=== PATIENT | male | born 1955 | race Caucasian/White ===

== ENCOUNTER 2016-11-17 13:00 | Emergency (ER) | payer BC, OTHER ==
[~2016-11-17] VITALS: Ht 180.3 cm; Wt 62.0 kg
[2016-11-17 13:05] VITALS: BP 180/120; PULSE 78; RESP 20; TEMP 98.6; O2SAT 97
[2016-11-17] MEDS ORDERED: METO100T PO (13:11)
[2016-11-17 13:16] VITALS: BP 216/118; PULSE 78
[2016-11-17] MEDS ORDERED: SODIUM CHLORIDE 0.9% FLUSH 5 ML FLUSH IVF PRN (13:30)
[2016-11-17] MEDS ORDERED: LIDOCAINE 1%/EPINEPHrine 1:100,000 SOLN 20 ML VIAL INFIL ONE (13:30)
--- NOTE | 2016-11-17 13:31 | PD ---
HPI Chief Complaint: Syncope/Near-Syncope Time Seen by Provider: 13:10 Travel History International Travel<30 days: No Contact w/Intl Traveler<30days: No Traveled to known affect area: No History of Present Illness HPI 61-year-old male with history of hypertension presents via EMS for evaluation after fall. 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 They were walking to a restaurant when the patient became forgetful. He forgot that he only gave the keys to the mechanics. He seemed to have an unsteady gait. When they arrived at the restaurant the patient drank yvon. He told the friend that he did not feel good and walked outside. He became combative and the patient's friend went inside the restaurant to call 911. When he returned outside the patient was passed out on the ground with laceration on the right eyebrow. This was a witnessed syncopal event by bystanders. There is no reported seizure activity. At this point in time the patient reports that he feels fine. He remembers driving his car off. He does not recall argument with his friend. He admits to drinking one glass of wine this morning as well as the yvon. She denies any headache, blurred vision, weakness, unusual slurred speech, shortness of breath, nausea or vomiting, abdominal pain, recent illness. Last tetanus vaccination was 3 months ago. He reports a history of hypertension for which she is prescribed 100 mg of metoprolol twice a day however he changed the dose himself to 50 mg twice a day because he felt that 100 mg was too much. He denies any personal history of coronary artery disease , structural cardiac abnormalities, no arrhythmias. No other complaints. [facility] Past Medical History Cardiovascular Problems: Yes Hypertension: Yes Tetanus Vaccination: Unknown Social History Alcohol Use: Yes Tobacco Use: Yes Substance Use: No Allergies-Medications (Allergen,Severity, Reaction): Coded Allergies: No Known Allergies (Unverified , 11/17/16) Reported Meds & Prescriptions Reported Meds & Active Scripts Active Reported Metoprolol Tartrate 100 Mg Tab 100 Mg PO BID Review of Systems Except as stated in HPI: all other systems reviewed are Neg Physical Exam Narrative GENERAL: Pleasant well-developed well-nourished male who is in no acute distress. He is alert and oriented, answering questions responding to commands appropriately. There is a smell of alcohol on his breath. SKIN: Warm and dry. HEAD: Atraumatic. Normocephalic. EYES: Pupils equal and round. No scleral icterus. No injection or drainage. ENT: No nasal bleeding or discharge. Mucous membranes pink and moist. NECK: Trachea midline. No JVD. CARDIOVASCULAR: Regular rate and rhythm. No murmur appreciated. RESPIRATORY: No accessory muscle use. Clear to auscultation. Breath sounds equal bilaterally. GASTROINTESTINAL: Abdomen soft, non-tender, nondistended. MUSCULOSKELETAL: No obvious deformities. No tenderness to palpation along the cervical or thoracic or lumbar midline spine. NEUROLOGICAL: Awake and alert. No obvious cranial nerve deficits. Motor grossly within normal limits. Mildly slurred speech. Mild ataxia bilaterally with finger to nose examination. Normal [id number]. PSYCHIATRIC: Appropriate mood and affect; insight and judgment normal. Data Data Last Documented VS Vital Signs Date Time Temp Pulse Resp B/P Pulse Ox O2 Delivery O2 Flow Rate FiO2 11/17/16 15:30 78 18 167/93 97 11/17/16 13:05 98.6 Orders Electrocardiogram (11/17/16 13:16) Basic Metabolic Panel (Bmp) (11/17/16 13:16) Complete Blood Count With Diff (11/17/16 13:16) Magnesium (Mg) (11/17/16 13:16) Ckmb (Isoenzyme) Profile (11/17/16 13:16) Troponin I (11/17/16 13:16) Ct Brain W/O Iv Contrast(Rout) (11/17/16 13:16) Ecg Monitoring (11/17/16 13:16) Iv Access Insert/Monitor (11/17/16 13:16) Oximetry (11/17/16 13:16) Sodium Chloride 0.9% Flush (Ns Flush) (11/17/16 13:30) Alcohol (Ethanol) (11/17/16 13:16) Lidocai-Epi 1%-1:100,000 Inj (Xylocaine- (11/17/16 13:30) Enalaprilat Inj (Vasotec Inj) (11/17/16 13:45) CKMB (11/17/16 13:20) CKMB% (11/17/16 13:20) Labs Laboratory Tests Test 11/17/16 13:20 White Blood Count 5.6 TH/MM3 Red Blood Count 3.91 MIL/MM3 Hemoglobin 14.2 GM/DL Hematocrit 41.3 % Mean Corpuscular Volume 105.7 FL Mean Corpuscular Hemoglobin 36.4 PG Mean Corpuscular Hemoglobin 34.5 % Concent Red Cell Distribution Width 14.8 % Platelet Count 217 TH/MM3 Mean Platelet Volume 7.4 FL Neutrophils (%) (Auto) 62.2 % Lymphocytes (%) (Auto) 22.3 % Monocytes (%) (Auto) 13.6 % Eosinophils (%) (Auto) 1.2 % Basophils (%) (Auto) 0.7 % Neutrophils # (Auto) 3.5 TH/MM3 Lymphocytes # (Auto) 1.2 TH/MM3 Monocytes # (Auto) 0.8 TH/MM3 Eosinophils # (Auto) 0.1 TH/MM3 Basophils # (Auto) 0.0 TH/MM3 CBC Comment DIFF FINAL Differential Comment Sodium Level 138 MEQ/L Potassium Level 4.6 MEQ/L Chloride Level 105 MEQ/L Carbon Dioxide Level 27.3 MEQ/L Anion Gap 6 MEQ/L Blood Urea Nitrogen 7 MG/DL Creatinine 0.75 MG/DL Estimat Glomerular Filtration 107 ML/MIN Rate Random Glucose 82 MG/DL Calcium Level 8.4 MG/DL Magnesium Level 2.1 MG/DL Total Creatine Kinase 157 U/L Creatine Kinase MB 1.6 NG/ML Troponin I LESS THAN 0.02 NG/ML Ethyl Alcohol Level 389 MG/DL MDM Medical Decision Making Medical Screen Exam Complete: Yes Emergency Medical Condition: Yes Medical Record Reviewed: Yes Interpretation(s) EKG reveals sinus rhythm with first-degree AV block, isolated T-wave inversions in lead V1. CBC BMP CT brain Alcohol level Troponin CK Differential Diagnosis Intoxication, CVA, TIA, subarachnoid hemorrhage, acute coronary syndrome, pulmonary embolism, aortic dissection, seizure, electrolyte abnormalities, dehydration, substance induced disorder Narrative Course 61-year-old male presents after a fall with loss of consciousness. He was acting somewhat forgetful and had a unsteady gait prior to the fall according to the patient's friend who is with him. Upon initial examination the patient is alert and oriented. He has mildly slurred speech and is slightly ataxic with finger to nose examination. Otherwise he has no neurologic deficits. He reports that he feels "great." He smells of alcohol. I suspect that the patient's symptoms are secondary to alcohol intoxication. Plan is for basic lab work, EKG, ECG monitoring, CT of the brain. The patient's blood pressure was quite elevated upon initial examination. He was given enalapril. He does endorse a history of hypertension for which she is prescribed Toprol-XL 100 mg once a day however he decrease the dose to 50 mg once a day a few months ago. He is encouraged to follow-up with his primary care physician and to continue his blood pressure medication as prescribed. He is agreeable with this plan. The patient has a laceration to the right eyebrow which was repaired. He refused sutures and so the laceration was repaired with Dermabond which he consented to. His alcohol level is 387. His lab work and imaging studies are otherwise unremarkable. He is Stable for discharge, he is getting a ride home from his sister. Discussed signs and symptoms that would warrant returning to the emergency room. Procedures Procedure Narrative Location: Right eyebrow Length: 1.5 cm Number of courtney/sutures: Dermabond The area was prepped with Betadine. The area was thoroughly irrigated and explored with no signs of tendon, vascular injury or foreign body. The wound was closed using Dermabond . This was a single layer repair. Patient tolerated procedure well Diagnosis Primary Impression: Alcohol intoxication Qualified Code: F10.120 - Alcohol intoxication, uncomplicated Additional Impressions: Facial laceration Qualified Code: S01.81XA - Facial laceration, initial encounter Hypertension Qualified Code: I10 - Essential hypertension Additional Instructions: Keep the wound clean and dry. Do not put any creams or lotions on the wound. The glue will as prescribed. Monitor blood pressure on a daily basis, keep a journal of the readings and follow up with her primary care physician next week to discuss. Consider decreasing alcohol consumption slowly. If you develop any new or worsening symptoms such as confusion, severe headache, chest pain, shortness of breath, focal weakness or numbness return to the emergency room. Med/Other Pt SpecificInfo: Wound Care Disposition: DISCHARGE HOME Condition: Stable Basilio Hadley Nov 17, 2016 13:31
[2016-11-17] MEDS ORDERED: ENALAPRILAT 2.5 MG/2 ML VIAL IV PUSH ONE (13:45)
[2016-11-17 13:47] LABS: AUTOMATED NEUTROPHIL # 3.5 TH/MM3 (1.8-7.7); BASOPHIL % 0.7 % (0.0-2.0); EOSINOPHIL # 0.1 TH/MM3 (0-0.4); EOSINOPHIL % 1.2 % (0.0-4.0); HEMATOCRIT 41.3 % (39.0-51.0); HEMO FLAGS DIFF FINAL; LYMPH % 22.3 % (9.0-44.0); LYMPHOCYTE # 1.2 TH/MM3 (1.0-4.8); MEAN CELL VOLUME 105.7 FL (80.0-100.0); MEAN CORPUSCULAR HEMOGLOBIN 36.4 PG (27.0-34.0); MEAN CORPUSCULAR HGB CONC 34.5 % (32.0-36.0); MONO % 13.6 % (0.0-8.0); NEUT % 62.2 % (16.0-70.0); PLATELET COUNT 217 TH/MM3 (150-450); RED BLOOD COUNT 3.91 MIL/MM3 (4.50-5.90); RED CELL DISTRIBUTION WIDTH 14.8 % (11.6-17.2); WHITE BLOOD COUNT 5.6 TH/MM3 (4.0-11.0)
[2016-11-17 13:49] VITALS: BP 168/81; PULSE 78; RESP 20; O2SAT 97
[2016-11-17 14:09] LABS: ANION GAP 6 MEQ/L (5-15); BICARBONATE 27.3 MEQ/L (21.0-32.0); BLOOD UREA NITROGEN 7 MG/DL (7-18); CHLORIDE 105 MEQ/L (98-107); GLOMERULAR FILTRATION RATE 107 ML/MIN (>89); MAGNESIUM 2.1 MG/DL (1.5-2.5); POTASSIUM 4.6 MEQ/L (3.5-5.1); SODIUM (NA) 138 MEQ/L (136-145)
[2016-11-17 14:10] LABS: CREATINE KINASE 157 U/L (39-308)
[2016-11-17 14:22] LABS: CKMB 1.6 NG/ML (0.5-3.6)
--- NOTE | 2016-11-17 14:57 | RADRPT ---
EXAM DATE/TIME: 11/17/2016 14:40 [facility] COMPARISON: No previous studies available for comparison. INDICATIONS : Syncope with fall. Laceration right supraorbital region. RADIATION DOSE: 56.35 CTDIvol (mGy) MEDICAL HISTORY : Cardiovascular disease. Hypertension. SURGICAL HISTORY : None. ENCOUNTER: Initial ACUITY: 1 day PAIN SCALE: 0/10 LOCATION: Right cranial TECHNIQUE: Multiple contiguous axial images were obtained of the head. Using automated exposure control and adj ustment of the mA and/or kV according to patient size, radiation dose was kept as low as reasonably a chievable to obtain optimal diagnostic quality images. FINDINGS: CEREBRUM: The ventricles are normal for age. Old lacunar infarct right basal ganglia. No evidence of midline sh ift, mass lesion, hemorrhage or acute infarction. No extra-axial fluid collections are seen. POSTERIOR FOSSA: The cerebellum and brainstem are intact. The 4th ventricle is midline. The cerebellopontine angle i s unremarkable. EXTRACRANIAL: The visualized portion of the orbits is intact. Bilateral maxillary sinus disease. SKULL: The calvaria is intact. No evidence of skull fracture. CONCLUSION: 1. No acute intracranial abnormality. 2. Bilateral maxillary sinus disease. Micha Vrema MD on November 17, 2016 at 14:53 Board Certified Radiologist. This report was verified electronically.
[2016-11-17 15:30] VITALS: BP 167/93; PULSE 78; RESP 18; O2SAT 97
--- NOTE | 2016-11-17 15:37 | PD ---
Data Data Last Documented VS Vital Signs Date Time Temp Pulse Resp B/P Pulse Ox O2 Delivery O2 Flow Rate FiO2 11/17/16 15:30 78 18 167/93 97 11/17/16 13:05 98.6 Orders Electrocardiogram (11/17/16 13:16) Basic Metabolic Panel (Bmp) (11/17/16 13:16) Complete Blood Count With Diff (11/17/16 13:16) Magnesium (Mg) (11/17/16 13:16) Ckmb (Isoenzyme) Profile (11/17/16 13:16) Troponin I (11/17/16 13:16) Ct Brain W/O Iv Contrast(Rout) (11/17/16 13:16) Ecg Monitoring (11/17/16 13:16) Iv Access Insert/Monitor (11/17/16 13:16) Oximetry (11/17/16 13:16) Sodium Chloride 0.9% Flush (Ns Flush) (11/17/16 13:30) Alcohol (Ethanol) (11/17/16 13:16) Lidocai-Epi 1%-1:100,000 Inj (Xylocaine- (11/17/16 13:30) Enalaprilat Inj (Vasotec Inj) (11/17/16 13:45) CKMB (11/17/16 13:20) CKMB% (11/17/16 13:20) Labs Laboratory Tests Test 11/17/16 13:20 White Blood Count 5.6 TH/MM3 Red Blood Count 3.91 MIL/MM3 Hemoglobin 14.2 GM/DL Hematocrit 41.3 % Mean Corpuscular Volume 105.7 FL Mean Corpuscular Hemoglobin 36.4 PG Mean Corpuscular Hemoglobin 34.5 % Concent Red Cell Distribution Width 14.8 % Platelet Count 217 TH/MM3 Mean Platelet Volume 7.4 FL Neutrophils (%) (Auto) 62.2 % Lymphocytes (%) (Auto) 22.3 % Monocytes (%) (Auto) 13.6 % Eosinophils (%) (Auto) 1.2 % Basophils (%) (Auto) 0.7 % Neutrophils # (Auto) 3.5 TH/MM3 Lymphocytes # (Auto) 1.2 TH/MM3 Monocytes # (Auto) 0.8 TH/MM3 Eosinophils # (Auto) 0.1 TH/MM3 Basophils # (Auto) 0.0 TH/MM3 CBC Comment DIFF FINAL Differential Comment Sodium Level 138 MEQ/L Potassium Level 4.6 MEQ/L Chloride Level 105 MEQ/L Carbon Dioxide Level 27.3 MEQ/L Anion Gap 6 MEQ/L Blood Urea Nitrogen 7 MG/DL Creatinine 0.75 MG/DL Estimat Glomerular Filtration 107 ML/MIN Rate Random Glucose 82 MG/DL Calcium Level 8.4 MG/DL Magnesium Level 2.1 MG/DL Total Creatine Kinase 157 U/L Creatine Kinase MB 1.6 NG/ML Troponin I LESS THAN 0.02 NG/ML Ethyl Alcohol Level 389 MG/DL MDM Supervised Visit with MARIOLA: Yes Narrative Course The history, exam, and medical decision-making in the associated midlevel provider note were completed with my assistance. I reviewed and agree with the findings presented. I attest that I had a [id number] encounter with the patient on the same day, and personally performed and documented my assessment and findings in the medical record. *My assessment and Findings: This is a 61-year-old male who presents the emergency department altered. He is brought in by a friend who did not witness him fall but was concerned that he may have had a stroke. Patient has evidence of clinical intoxication on exam. He is ataxic and intermittently agitated. Alcohol level was over 300. CT of the head was negative for intracranial hemorrhage. Patient will be discharged to the custody of his family. Ramila Birmingham MD Nov 17, 2016 15:37
--- NOTE | 2016-11-18 12:25 | EKG ---
Date Performed: 11/17/2016 Time Performed: 13:19:08 PTAGE: 61 years EKG: Sinus rhythm WITH FIRST DEGREE AV BLOCK MINIMAL VOLTAGE CRITERIA FOR LVH, CONSIDER NORMAL VARIANT Since previous tracing, no significant change noted ABNORMAL ECG PREVIOUS TRACING : 08/08/2005 14.13 DOCTOR: Angy Parker Interpretating Date/Time 11/18/2016 12:23:33
== END 2016-11-17 15:52 | disposition home or self-care (01) ==
LOC: NEPE 13:00
DX: S01.111A Laceration without foreign body of right eyelid and periocular area, initial encounter (principal); F10.129 Alcohol abuse with intoxication, unspecified; I10 Essential (primary) hypertension; I44.0 Atrioventricular block, first degree; R27.0 Ataxia, unspecified; R45.1 Restlessness and agitation; Z72.0 Tobacco use; Y90.8 Blood alcohol level of 240 mg/100 ml or more; R94.31 Abnormal electrocardiogram [ECG] [EKG]; W18.30XA Fall on same level, unspecified, initial encounter; Y93.89 Activity, other specified; Y92.89 Other specified places as the place of occurrence of the external cause
CPT/HCPCS: 12011; 70450; 80048; 80320; 82550; 82552; 83735; 84484; 85025; 93005; 96374

== ENCOUNTER 2018-01-10 09:31 | Emergency (ER) | payer OTHER ==
[~2018-01-10] VITALS: Ht 177.8 cm; Wt 58.0 kg
[~2018-01-10 09:31] MED LIST: METO100T PO
[2018-01-10 09:48] VITALS: BP 230/116; PULSE 83; RESP 16; TEMP 99.4; O2SAT 100
[2018-01-10] MEDS ORDERED: AMLO10TA2 PO (11:47)
[2018-01-10] MEDS ORDERED: CHLO25TA2 PO (11:47)
--- NOTE | 2018-01-10 12:03 | PD ---
HPI Chief Complaint: Abnormal Results Time Seen by Provider: 11:57 Travel History International Travel<30 days: No Contact w/Intl Traveler<30days: No Traveled to known affect area: No History of Present Illness HPI 62-year-old male complains of elevated blood pressure approximately 220/110 at home. He arrives to the ER reporting the same. He was started on chlorthalidone and amlodipine yesterday[facility] He reports compliance with those medications as well as metoprolol which she has been taking up until now. He has no chest pain shortness of breath nausea vomiting dizziness headache fever chills or systemic complaint otherwise. He took his blood pressure at home as part of her routine morning assessment and upon seeing the results came to the ER. [facility] Past Medical History Medical History: Denies Significant Hx Cardiovascular Problems: Yes Diminished Hearing: No Hypertension: Yes Influenza Vaccination: No ?: Not Past Surgical History Surgical History: No Previous Surgery Social History Alcohol Use: Yes Tobacco Use: Yes Substance Use: No Allergies-Medications (Allergen,Severity, Reaction): Coded Allergies: No Known Allergies (Unverified Adverse Reaction, Unknown, 01/10/18) Reported Meds & Prescriptions Reported Meds & Active Scripts Active Clonidine (Clonidine HCl) 0.1 Mg Tab 0.1 Mg PO BID Reported Amlodipine (Amlodipine Besylate) 10 Mg Tab 10 Mg PO DAILY Chlorthalidone 25 Mg Tab 12.5 Mg PO DAILY Metoprolol Tartrate 100 Mg Tab 100 Mg PO BID Review of Systems Except as stated in HPI: all other systems reviewed are Neg General / Constitutional: No: Fever HENT: No: Headaches Physical Exam Narrative GENERAL: 62-year-old male pleasant well-nourished well-developed no acute distress Vital Signs Date Time Temp Pulse Resp B/P (MAP) Pulse Ox O2 Delivery O2 Flow Rate FiO2 01/10/18 09:48 99.4 83 16 230/116 (154) 100 SKIN: Warm and dry. HEAD: Atraumatic. Normocephalic. EYES: Pupils equal and round. No scleral icterus. No injection or drainage. ENT: No nasal bleeding or discharge. Mucous membranes pink and moist. NECK: Trachea midline. No JVD. CARDIOVASCULAR: Regular rate and rhythm. No murmur. 2+ radial artery pulse bilaterally. RESPIRATORY: No accessory muscle use. Clear to auscultation. Breath sounds equal bilaterally. GASTROINTESTINAL: Abdomen soft, non-tender, nondistended. Hepatic and splenic margins not palpable. MUSCULOSKELETAL: Extremities without clubbing, cyanosis, or edema. No obvious deformities. NEUROLOGICAL: Awake and alert. No obvious cranial nerve deficits. Motor grossly within normal limits. Five out of 5 muscle strength in the arms and legs. Normal speech. PSYCHIATRIC: Appropriate mood and affect; insight and judgment normal. Data Data Last Documented VS Vital Signs Date Time Temp Pulse Resp B/P (MAP) Pulse Ox O2 Delivery O2 Flow Rate FiO2 01/10/18 12:47 204/116 (145) 01/10/18 09:48 99.4 83 16 100 Orders Orders Clonidine (Catapres) (01/10/18 12:15) Ed Discharge Order (01/10/18 12:55) [facility] Medical Decision Making Medical Screen Exam Complete: Yes Emergency Medical Condition: Yes Medical Record Reviewed: Yes Differential Diagnosis Essential hypertension, secondary hypertension, hypertensive emergency. Narrative Course The patient has asymptomatic elevated blood pressure He received clonidine with excellent effect, 176/90 The patient will continue with amlodipine and chlorthalidone. Patient was seen here about 13 months ago and the blood pressure was quite high then as well with a systolic over 200. In the setting the patient most likely has chronic markedly elevated blood pressure and a marginal improvement is acceptable. Side effects and alternatives to clonidine discussed w patient including rebound phenomenon and patient verbalized understanding. Diagnosis Primary Impression: Hypertension Qualified Codes: I10 - Essential (primary) hypertension Referrals: [facility] call for appointment Med/Other Pt SpecificInfo: Prescription(s) given Scripts Clonidine (Clonidine) 0.1 Mg Tab 0.1 MG PO BID for Blood Pressure Management, #5 TAB 0 Refills Prov: Elton Chan MD 01/10/18 Disposition: DISCHARGE HOME Condition: Stable Elton Chan MD Jan 10, 2018 12:03
[2018-01-10] MEDS ORDERED: cloNIDine HCL 0.1 MG TAB PO ONE (12:15)
[2018-01-10 12:47] VITALS: BP 204/116
[2018-01-10] MEDS ORDERED: CLON0.1T PO (12:56)
== END 2018-01-10 13:01 | disposition home or self-care (01) ==
LOC: PHED 09:31 → PHEFT 13:01
DX: I10 Essential (primary) hypertension (principal); Z72.0 Tobacco use; Z79.899 Other long term (current) drug therapy
CPT/HCPCS: 99283